=== PATIENT | male | born 1925 | race Hispanic/Latino ===

== ENCOUNTER 2016-06-08 16:58 | Emergency (ER) | payer MEDICARE, MEDICAID ==
--- NOTE | 2016-06-08 18:13 | C.PDOC ---
History Of Present Illness 89 y/o male presents to the ED s/p fall. Pt states he was walking, slipped and fell hitting his head, now has laceration to left brow. He denies LOC. History limited due to patient condition, pt states "my brother knows that" when asked his age. - HPI Time Seen by Provider: 06/08/16 18:05 Chief Complaint (Nursing): Trauma History Per: Patient History/Exam Limitations: clinical condition Onset/Duration Of Symptoms: Hrs Severity: Mild Recent travel outside of the [place]: No - Fall Fall:Prior To Injury: Slipped Past Medical History Reviewed: Historical Data, Nursing Documentation, Vital Signs Vital Signs: Last Vital Signs Temp 98.1 F 06/08/16 17:00 Pulse 75 06/08/16 17:00 Resp 20 06/08/16 17:00 BP 179/73 H 06/08/16 17:00 Pulse Ox 95 06/08/16 18:35 - Medical History PMH: Asthma, Benign Prostatic Hyperplasia, COPD, Diabetes, Graves' Disease, HTN , Hyperlipidemia, Seizures (Convulsions) Family History: States: Unknown Family Hx - Social History Hx Tobacco Use: No Hx Alcohol Use: No Hx Substance Use: No - Immunization History Hx Tetanus Toxoid Vaccination: No Hx Influenza Vaccination: No Hx Pneumococcal Vaccination: No Review Of Systems Constitutional: Negative for: Fever Cardiovascular: Negative for: Chest Pain Respiratory: Negative for: Shortness of Breath Gastrointestinal: Negative for: Vomiting, Abdominal Pain Skin: Positive for: Other (laceration to left brow) Physical Exam - Physical Exam Appears: Non-toxic, No Acute Distress, Other (lively, obese, wide awake, moving and talking) Skin: Warm, Dry, No Rash Head: Normacephalic, No Swelling, Laceration (shallow laceration to left brow with hematoma) Nose: Normal Neck: Normal ROM, Supple Chest: Symmetrical Cardiovascular: Rhythm Regular, No Murmur Respiratory: Normal Breath Sounds, No Rales, No Rhonchi, No Wheezing Gastrointestinal/Abdominal: Normal Exam, Soft, No Tenderness Extremity: Normal ROM Extremity: Bilateral: Atraumatic ED Course And Treatment O2 Sat by Pulse Oximetry: 95 (on room air) Pulse Ox Interpretation: Normal Disposition - Disposition Disposition: HOME/ ROUTINE Disposition Time: 18:57 Condition: STABLE - Clinical Impression Clinical Impression: Contusion, Laceration - injury, Fall - Scribe Statement The provider has reviewed the documentation as recorded by the Haibgeorges Mcclain Provider Attestation: All medical record entries made by the Scribe were at my direction and personally dictated by me. I have reviewed the chart and agree that the record accurately reflects my personal performance of the history, physical exam, medical decision making, and the department course for this patient. I have also personally directed, reviewed, and agree with the discharge instructions and disposition. Physician Patient Turnover Patient Signed Over To: Thalia Zepeda Handoff Comments: patient slipped and fell in nursing, awake, alert, sent for CT , pending CT
--- NOTE | 2016-06-08 19:04 | CT ---
PROCEDURE: CT HEAD WITHOUT CONTRAST. HISTORY: fall COMPARISON: Noncontrast head CT performed 06/08/14 TECHNIQUE: Axial computed tomography images were obtained through the head/brain without intravenous contrast. Radiation dose: Total exam DLP = 905.35 mGy-cm. This CT exam was performed using one or more of the following dose reduction techniques: Automated exposure control, adjustment of the mA and/or kV according to patient size, and/or use of iterative reconstruction technique. FINDINGS: HEMORRHAGE: No intracranial hemorrhage. BRAIN: Diffuse atrophy with prominence of the ventricles and sulci noted. No mass effect or edema. Intracranial atherosclerosis. Scattered periventricular and subcortical white matter hypodensities, which are nonspecific, but often seen with chronic microvascular ischemic disease. 5 mm left basal ganglia lacunar infarct. Please note that MRI with diffusion imaging is more sensitive in the detection of acute ischemic event. VENTRICLES: No hydrocephalus. CALVARIUM: Unremarkable. PARANASAL SINUSES: Unremarkable as visualized. No significant inflammatory changes. MASTOID AIR CELLS: Unremarkable as visualized. No inflammatory changes. OTHER FINDINGS: Opacification of the right greater than left external auditory canals, likely cerumen. IMPRESSION: No acute intracranial pathology identified. Scattered nonspecific white matter changes. 5 mm left basal ganglia lacunar infarct. Generalized atrophy. Opacification of the right greater than left external auditory canals, likely cerumen.
[2016-06-08 19:33] VITALS: BP 156/59; PULSE 62; RESP 18; TEMP 98; O2SAT 94
== END 2016-06-08 20:30 | disposition designated cancer center or children's hospital (05) ==
LOC: C.ER 16:58
DX: S01.112A Laceration without foreign body of left eyelid and periocular area, initial encounter (principal); W01.0XXA Fall on same level from slipping, tripping and stumbling without subsequent striking against object, initial encounter; Y93.9 Activity, unspecified; Y92.129 Unspecified place in nursing home as the place of occurrence of the external cause